=== PATIENT | male | born 1945 | race Caucasian/White ===

== ENCOUNTER → 2024-06-20 07:31 | Outpatient (REF) | payer MEDICARE, SELFPAY | LOC: HWRCS 07:31 | PROVIDERS: ATTENDING PHYSICIAN Internal Medicine Cardiovascular Disease; FAMILY PHYSICIAN Family Medicine | DX: I25.10 Atherosclerotic heart disease of native coronary artery without angina pectoris (principal); R00.1 Bradycardia, unspecified | CPT/HCPCS: 78452; 93017; A9500; J2785 ==